=== PATIENT | female | born 1950 | race Hispanic/Latino ===

== ENCOUNTER → 2018-10-02 | Outpatient (CLI) | payer OTHER | END | disposition home or self-care (01) | LOC: RAH 15:26 | PROVIDERS: ATTEND Nurse Practitioner Family | DX: Z01.818 Encounter for other preprocedural examination (principal); M47.814 Spondylosis without myelopathy or radiculopathy, thoracic region; M41.80 Other forms of scoliosis, site unspecified; J44.9 Chronic obstructive pulmonary disease, unspecified | CPT/HCPCS: 71046; 72170 ==

== ENCOUNTER 2018-12-13 14:52 | Inpatient (IN) | payer OTHER ==
[~2018-12-13] VITALS: Ht 172.7 cm; Wt 98.2 kg
[2018-12-13 15:35] LABS: BASOPHILS % (AUTO) 1.1 % (0.0-5.0); EOSINOPHILS % (AUTO) 1.5 % (0.0-8.0); HEMATOCRIT 41.4 % (36-48); LYMPHOCYTES % (AUTO) 24.4 % (21.0-51.0); MEAN CORPUSCULAR HEMOGLOBIN 28.5 pg (27.0-33.0); MEAN CORPUSCULAR VOLUME 86.5 fL (79-99); MONOCYTES % (AUTO) 6.5 % (3.0-13.0); NEUTROPHILS % (AUTO) 66.5 % (40.0-77.0); PLATELET COUNT (AUTO) 265 K/uL (130-400); RED BLOOD CELL COUNT(AUTO) 4.78 MIL/uL (4.00-5.50); WHITE BLOOD COUNT (AUTO) 5.8 K/uL (4.8-10.8)
[2018-12-13 15:53] LABS: ALBUMIN 3.5 g/dL (3.5-5.0); BILIRUBIN,TOTAL 1.3 mg/dL (0.2-1.0); CREATININE 0.7 mg/dL (0.5-1.5); POTASSIUM 4.8 mmol/L (3.5-5.1); TOTAL PROTEIN, SERUM 6.6 g/dL (6.0-8.3)
[2018-12-13 16:23] LABS: B-TYPE NATRIURETIC PEPTIDE 66 pg/mL (0-100)
[2018-12-13] MEDS ORDERED: ASPIRIN 325 MG TABLET ONE (16:30)
[2018-12-13 17:20] LABS: APPEARANCE,URINE SL CLOUDY (CLEAR); BILIRUBIN,URINE NEGATIVE (NEGATIVE); COLOR,URINE YELLOW (YELLOW); GLUCOSE, URINE (UA) NEGATIVE (NEGATIVE); KETONES,URINE NEGATIVE (NEGATIVE); LEUKOCYTE ESTERASE ,URINE TRACE (NEGATIVE); NITRATE,URINE NEGATIVE (NEGATIVE); OCCULT BLOOD,URINE NEGATIVE (NEGATIVE); PROTEIN,URINE NEGATIVE (NEGATIVE)
[2018-12-13 17:37] LABS: BACTERIA,URINE Few /HPF (None Seen); MUCUS,URINE Few LPF (None Seen); RBC,URINE None Seen /HPF (0-1)
[2018-12-13] MEDS: SODIUM CHLORIDE 0.9% 1000ML 1,000 ML IV SCH (18:32)
[2018-12-13] MEDS ORDERED: ONDANSETRON HCL 4 MG/2 ML VIAL IV PRN (18:45)
[2018-12-13] MEDS ORDERED: ACETAMINOPHEN 325 MG TAB PO PRN (18:45)
[2018-12-13] MEDS: CEFTRIAXONE SODIUM 1 GM IV SCH (18:45)
[2018-12-13] MEDS ORDERED: CLOPIDOGREL BISULFATE 75 MG TAB ONE (19:10)
[2018-12-13 19:28] LABS: CREATINE KINASE, TOTAL 114 U/L (21-232); MYOGLOBIN 53 ng/mL (10-92); TROPONIN I < 0.04 ng/mL (0.00-0.06)
[2018-12-13] MEDS ORDERED: IOHEXOL-350 75 ML VIAL IV ONE (20:03)
[2018-12-13] MEDS ORDERED: IBUPROFEN 400 MG TABLET PO PRN (20:30)
[2018-12-13 21:05] VITALS: BP 144/75
[2018-12-13] MEDS ORDERED: CETI10TA57 PO (22:46)
[2018-12-13] MEDS ORDERED: CYCL30DR OP (22:46)
[2018-12-13] MEDS ORDERED: TIOT4MIS5 IH (22:46)
[2018-12-13] MEDS ORDERED: LEVO25TA54 PO (22:46)
[2018-12-13] MEDS ORDERED: RANI150T7 PO (22:46)
[2018-12-13] MEDS ORDERED: MULT-1103 PO (22:46)
[2018-12-13] MEDS ORDERED: FLUD0.1T2 PO (22:46)
[2018-12-13] MEDS ORDERED: THEO400T3 PO (22:46)
[2018-12-13] MEDS ORDERED: TRAM-355 PO (22:46)
[2018-12-14] VITALS (15 sets, daily range): BP systolic 95–141; BP diastolic 44–77
[2018-12-14] MEDS: FAMOTIDINE 20MG TAB 20 MG TAB PO SCH ×3 (00:11→20:38)
[2018-12-14 02:42] LABS: HEMATOCRIT 40.2 % (36-48); MEAN CORPUSCULAR HEMOGLOBIN 29.2 pg (27.0-33.0); MEAN CORPUSCULAR HGB CONC 33.8 g/dL (32.0-36.0); MEAN CORPUSCULAR VOLUME 86.4 fL (79-99); PLATELET COUNT (AUTO) 232 K/uL (130-400); RED BLOOD CELL COUNT(AUTO) 4.65 MIL/uL (4.00-5.50); RED CELL DISTRIBUTION WIDTH 13.6 % (11.0-15.5); WHITE BLOOD COUNT (AUTO) 6.1 K/uL (4.8-10.8)
[2018-12-14 03:01] LABS: ALANINE AMINOTRANSFERASE 14 U/L (12-78); ALBUMIN 3.1 g/dL (3.5-5.0); ASPARTATE AMINOTRANSFERASE 19 U/L (10-37); CARBON DIOXIDE 30 mmol/L (21-32); CHLORIDE 108 mmol/L (101-111); CHOLESTEROL 157 mg/dL (<200); CREATINE KINASE, TOTAL 95 U/L (21-232); CREATININE 0.8 mg/dL (0.5-1.5); GLOMERULAR FILTR. RATE CALC 76 mL/min (>60); GLUCOSE,RANDOM 100 mg/dL (70-105); HDL CHOLESTEROL 44 mg/dL (35-85); LDL DIRECT 100 mg/dL (0-99); MYOGLOBIN 52 ng/mL (10-92); POTASSIUM 3.7 mmol/L (3.5-5.1); SODIUM SERUM 143 mmol/L (136-145); TOTAL PROTEIN, SERUM 6.1 g/dL (6.0-8.3); TRIGLYCERIDES 69 mg/dL (30-200); TROPONIN I < 0.04 ng/mL (0.00-0.06); UREA NITROGEN, BLOOD 12 mg/dL (7-18)
[2018-12-14] MEDS: SODIUM CHLORIDE 0.9% 1000ML 1,000 ML IV SCH ×2 (07:52→16:00)
[2018-12-14] MEDS: ASPIRIN 81MG TAB.CHEW PO SCH (09:55)
[2018-12-14] MEDS: ENOXAPARIN SODIUM 30 MG/0.3 ML SQ SCH (09:55)
[2018-12-14] MEDS ORDERED: FLUDROCORTISONE ACETATE 0.1 MG TABLET PO SCH ×2 (10:30→15:45)
[2018-12-14 10:48] LABS: CREATINE KINASE, TOTAL 95 U/L (21-232); MYOGLOBIN 80 ng/mL (10-92); TROPONIN I < 0.04 ng/mL (0.00-0.06)
--- NOTE | 2018-12-14 14:00 | NUR ---
INITIAL Met w pt alone, [id number], lives with cousin maxime and assist her with some adls. has wlker rolling walker shower chair, cane; has provider 2 hrs 3 x wk; dcp is home cousin catrina parnell will provide transport Addendum: 12/14/18 at 1920 by ABHISHEK FORTUNE RN CM Amended: Links added.
[2018-12-14] MEDS: CEFTRIAXONE SODIUM 1 GM IV SCH (17:28)
[2018-12-14] MEDS: MORPHINE SULFATE 2 MG/ML 1ML SYG IV PRN (20:38)
[2018-12-15] VITALS (7 sets, daily range): BP systolic 97–131; BP diastolic 45–68
[2018-12-15] MEDS: MORPHINE SULFATE 2 MG/ML 1ML SYG IV PRN (06:24)
[2018-12-15] MEDS: FAMOTIDINE 20MG TAB 20 MG TAB PO SCH ×2 (09:38→20:59)
[2018-12-15] MEDS: ENOXAPARIN SODIUM 30 MG/0.3 ML SQ SCH (09:38)
[2018-12-15] MEDS: ASPIRIN 81MG TAB.CHEW PO SCH (09:38)
[2018-12-15] MEDS: SODIUM CHLORIDE 0.9% 1000ML 1,000 ML IV SCH ×2 (10:32→19:56)
[2018-12-15] MEDS: CEFTRIAXONE SODIUM 1 GM IV SCH (19:08)
[2018-12-16 03:35] VITALS: BP 128/68
[2018-12-16 06:30] LABS: EOSINOPHILS % (AUTO) 2.4 % (0.0-8.0); HEMATOCRIT 40.7 % (36-48); LYMPHOCYTES % (AUTO) 40.4 % (21.0-51.0); MEAN CORPUSCULAR HEMOGLOBIN 29.2 pg (27.0-33.0); MEAN CORPUSCULAR HGB CONC 33.8 g/dL (32.0-36.0); MEAN CORPUSCULAR VOLUME 86.6 fL (79-99); MONOCYTES % (AUTO) 7.7 % (3.0-13.0); NEUTROPHILS % (AUTO) 48.5 % (40.0-77.0); NUCLEATED RED BLOOD CELLS 0.1 % (0.0-0.19); PLATELET COUNT (AUTO) 236 K/uL (130-400); RED CELL DISTRIBUTION WIDTH 13.8 % (11.0-15.5); WHITE BLOOD COUNT (AUTO) 5.8 K/uL (4.8-10.8)
[2018-12-16 06:42] LABS: CREATININE 0.9 mg/dL (0.5-1.5)
--- NOTE | 2018-12-16 07:35 | NUR ---
ASSISTED OUT OF BED TO THE BS. TOLERATED ACTIVITY WELL.
[2018-12-16 07:49] VITALS: BP 128/53
[2018-12-16] MEDS: ENOXAPARIN SODIUM 30 MG/0.3 ML SQ SCH (09:00)
--- NOTE | 2018-12-16 09:33 | NUR ---
SPOKE WITH MIRROR FINISHING MACHINE OPERATOR RUSTY GONSALES REGARDING HOME MEDICATION RECONCILIATION. MIRROR FINISHING MACHINE OPERATOR SAID THAT SHE WILL REVIEW MEDS.
[2018-12-16] MEDS: FAMOTIDINE 20MG TAB 20 MG TAB PO SCH (09:46)
[2018-12-16] MEDS: ASPIRIN 81MG TAB.CHEW PO SCH (09:46)
[2018-12-16 11:47] VITALS: BP 108/67
[2018-12-16] MEDS ORDERED: MECL12.585 PO (13:43)
[2018-12-16] MEDS ORDERED: TRAMADOL /APAP 37.5MG/325MG TAB PO SCH (14:00)
--- NOTE | 2018-12-16 16:39 | NUR ---
DISCHARGE INSTRUCTIONS WERE EXPLAINED VIA TEACH BACK AND FOLLOW-UP RECOMMENDATION AND PRESCRIPTION EXPLAINED WITH RETURNED UNDERSTANDING. IV LINE AND TELE MONITOR DISCONTINUED WITHOUT PROBLEM. PATIENT IS NOW WAITING FOR HER RIDE HOME.
--- NOTE | 2018-12-16 17:25 | NUR ---
LEFT THE UNIT STABLE VIA WHEELCHAIR IN CARE OF HER COUSIN.
[2018-12-16] MEDS ORDERED: IPRATROPIUM 0.5 MG/2.5 ML INH IH SCH (18:00)
[2018-12-16] MEDS ORDERED: RANITIDINE HCL 15 MG/1 ML PO SCH (21:00)
[2018-12-16] MEDS ORDERED: **HM**(Cyclosporine (Restasis) 1 EACH OP SCH (21:00)
[2018-12-16] MEDS ORDERED: **HM**Theophylline Anhydrous (Theophylline) 400 MG PO SCH (21:00)
[2018-12-17] MEDS ORDERED: LEVOTHYROXINE 25 MCG TABLET PO SCH (06:30)
[2018-12-17] MEDS ORDERED: CETIRIZINE HCL 5 MG TABLET PO SCH (09:00)
[2018-12-17] MEDS ORDERED: MULTIVITAMIN WITH MINERALS TABLET PO SCH (09:00)
[2018-12-17] MEDS ORDERED: FLUDROCORTISONE ACETATE 0.1 MG TABLET PO SCH (09:00)
== END 2018-12-16 17:20 | disposition home or self-care (01) | DRG 312 ==
LOC: EDH 14:52 → EDHIP 18:32 → OBSVTOIN 18:32 → 3CH 20:44
PROVIDERS: ADMIT Internal Medicine; ATTEND Internal Medicine
DX: I95.1 Orthostatic hypotension (principal); N39.0 Urinary tract infection, site not specified; E78.5 Hyperlipidemia, unspecified; E03.9 Hypothyroidism, unspecified; I10 Essential (primary) hypertension; J44.9 Chronic obstructive pulmonary disease, unspecified; R32 Unspecified urinary incontinence; R42 Dizziness and giddiness
CPT/HCPCS: 36415; 70496; 70498; 71045; 80048; 80053; 80061; 81001; 82533; 82550; 83605; 83874; 83880; 84484; 85025; 85027; 93005; 93306; 94664; A4218; G0378; J0696; J1650; J7030; Q9967